=== PATIENT | male | born 1960 | race Native Hawaiian/Other Pacific Islander ===

== ENCOUNTER 2024-07-18 23:21 | Emergency (ER) | payer MEDICARE, SELFPAY ==
[2024-07-18 23:22] VITALS: BMI 25.8
[2024-07-18 23:44] VITALS: BP 156/92; PULSE 74; RESP 19; TEMP 36.6; O2SAT 96
--- NOTE | 2024-07-19 00:02 | PD.EDANIML ---
ED Animal Bite RME/HPI General Chief Complaint: Animal Bite Stated Complaint: DOG BITE Time Seen by Provider: 07/18/24 23:26 Arrival date/time: 07/18/24 23:21 This is a case of 63-year-old male who came in the emergency room due to puncture wound secondary to dog bite 1 hour prior to arrival in the emergency room denies any numbness weakness or tingling sensation patient dog unknown rabies vaccine patient tetanus shot is not up-to-date Limitations: no limitations Related Data Previous Rx's ?Medication ?Instructions ?Recorded amoxicillin 875 mg-potassium 1 tab PO BID 10 days #20 tabs 07/19/24 clavulanate 125 mg tablet mupirocin 2 % topical ointment 1 applic topical BID #22 grams 07/19/24 Allergies Allergy/AdvReac Type Severity Reaction Status Date / Time No Known Allergies Allergy Verified 07/18/24 23:22 Review of Systems Review of Systems Systems Reviewed: All systems reviewed, normal except as documented Constitutional Constitutional: Reports system reviewed and no additional complaints, except as documented Cardiovascular Cardiovascular: Reports system reviewed and no additional complaints, except as documented Respiratory Respiratory: Reports system reviewed and no additional complaints, except as documented Gastrointestinal Gastrointestinal: Reports system reviewed and no additional complaints, except as documented Musculoskeletal Musculoskeletal: Reports system reviewed and no additional complaints, except as documented Integumentary/Breasts Skin/Breast: Reports system reviewed and no additional complaints, except as documented Past Medical History Social History SMOKING STATUS: Never smoker ED Exam General Limitations: Present no limitations General appearance: Present alert and in no apparent distress; Absent appears intoxicated Head Head exam: Present atraumatic and normocephalic Eye Eye exam: Present normal appearance, PERRL and EOMI ENT ENT exam: Present normal exam and normal oropharynx Neck Neck exam: Present normal inspection Chest Chest inspection: Present normal inspection and symmetric chest wall rise Respiratory Respiratory exam: Present normal lung sounds bilaterally Cardiovascular Cardiovascular exam: Present regular rate and normal rhythm Extremities Exam Extremities exam: Present normal inspection, full ROM and normal capillary refill; Absent tenderness, pedal edema, joint swelling or calf tenderness Neurological Exam Neurological exam: Present alert, oriented X3, CN II-XII intact, normal gait, motor sensory deficit and reflexes normal Skin Skin exam: Present other (Patient sustained a small punctured wound on the lateral side dorsal foot clean dry no redness no swelling no abscess ROM intact neurovascular intact) Course Quality Measures none Orders Category Date Time Status Wound Care NOW Care 07/18/24 23:58 Active JEFF/POLY/JAYLEEN (Neosporin) OINT [Neosporin Oint] Med 07/18/24 23:58 Once See Dose Instructions TOP X1 ONE TET,DIP/PERT AC (Adult)-Tdap [Boostrix Adult (Tdap) Med 07/18/24 23:58 Once Vacc] 0.5 ml IMI .ONCE ONE Vital Signs Vital signs: Vital Signs Temperature 98 F 07/18/24 23:44 Pulse Rate 74 07/18/24 23:44 Respiratory Rate 19 07/18/24 23:44 Blood Pressure 156/92 H 07/18/24 23:44 Pulse Oximetry (%) 96 07/18/24 23:44 Oxygen Delivery Method Room Air 07/18/24 23:44 Oxygen saturation 96% WNL Animal Bite MDM Narrative MDM Narrative:: This is a case of 63-year-old male who came in the emergency room due to puncture wound secondary to dog bite 1 hour prior to arrival in the emergency room denies any numbness weakness or tingling sensation patient dog unknown rabies vaccine patient tetanus shot is not up-to-date patient is awake alert oriented not in distress nontoxic looking noted small puncture wound on the lateral side dorsal aspect of the right foot ROM intact neurovascular intact wound was cleaned with normal saline and apply triple antibiotic tetanus shot was given here in the emergency room patient was discharged with Augmentin and mupirocin ointment patient will follow-up with PCP in 2 days for evaluation patient is advised for any worsening symptoms or any signs and symptoms of infection he needs to return to the emergency room immediately or call 911 patient agreed with the treatment plan and discharge patient agrees to the discharge instruction patient discharged with stable condition and steady gait Patient data External records reviewed:: [facility] previous records Clinical information provided by:: patient Social determinants that could affect healthcare access:: none Patient has the following chronic illnesses:: No chronic illness How is presenting disease/condition affected by chronic disease/condition?: no chronic disease Evaluation data The following diagnostics were reviewed and interpreted by me:: other (specify) (None) Lab and/or radiology exams considered but not ordered:: None Interpretation Summary: None Medications / Prescriptions Medications or Prescriptions considered but not ordered:: Given Medication administrations:: Medication Administration History Diphtheria/Tetanus/Acell Pertussis (Diphth,Pertuss(Acell),Tet Vac 0.5 Ml Syr- Adult) 0.5 ml IMi .ONCE ONE Stop: 07/18/24 23:59 Neomycin/Polymyxin/Bacitracin (Jeff/Poly/Jayleen (Neosporin) Oint 15 Gm Tube) 0 gm TOP X1 ONE Stop: 07/18/24 23:59 Given Consultations Consultation(s) initiated? (list below): No Diagnosis Differential diagnosis animal bite: bite by animal Most likely diagnosis given after review of the tests above:: Dog bite Admission Indicated Admission indicated?: not indicated Admission Request Was there a request for admission?: No Disposition Plan Disposition Plan: Discharge Discharge Attestation Discharge Attestation: The patient and all family members were given an opportunity to ask questions and understood the discharge instructions. Discharge instructions specifically effects, indications for sooner follow up or return to the emergency department, and the expected course of current diagnosis. Patient condition: Stable Discharge Plan Plan Patient Disposition: HOME (Self Care) Discharge Disposition comment: Stable Prescriptions/Referrals Prescriptions/Med Rec: New amoxicillin-pot clavulanate 875-125 mg tablet 1 tab PO BID 10 Days Qty: 20 0RF mupirocin 2 % ointment 1 applic topical BID Qty: 22 0RF Problem List Clinical Impression: Dog bite, Puncture wound of foot Patient/Caregiver Discharge Instructions Education Materials: ED Animal Bite (General), ED Dog Bite, ED Puncture Wound (General) Additional Instructions: Follow-up with your primary care physician in 2 days for reevaluation for any worsening symptoms or any emergent concerns such as redness swelling discharge from the wound pain fever chills call 911 or go to the nearest emergency room take your antibiotic and finish the course of antibiotic keep the wound clean and dry Print Language: Eritrean Stand Alone Forms: Mel Award Info., Patient Portal Info Letter PA/CLIENT SUPPORT ADMINISTRATOR Supervising Physician PA/LIZ Supervising Physician: Dr carrasco
--- NOTE | 2024-07-19 00:03 | PD.EDANIML ---
ED Animal Bite RME/HPI General Chief Complaint: Animal Bite Stated Complaint: DOG BITE Time Seen by Provider: 07/18/24 23:26 Arrival date/time: 07/18/24 23:21 RME / HPI RME / HPI narrative: This is a case of 63-year-old male who came into the emergency room due to dog bite and sustained a puncture wound on the right foot Related Data Previous Rx's ?Medication ?Instructions ?Recorded amoxicillin 875 mg-potassium 1 tab PO BID 10 days #20 tabs 07/19/24 clavulanate 125 mg tablet mupirocin 2 % topical ointment 1 applic topical BID #22 grams 07/19/24 Allergies Allergy/AdvReac Type Severity Reaction Status Date / Time No Known Allergies Allergy Verified 07/18/24 23:22 Course Quality Measures none Orders Category Date Time Status Wound Care NOW Care 07/18/24 23:58 Completed JEFF/POLY/JAYLEEN (Neosporin) OINT [Neosporin Oint] Med 07/18/24 23:58 Discontinued See Dose Instructions TOP X1 ONE TET,DIP/PERT AC (Adult)-Tdap [Boostrix Adult (Tdap) Med 07/18/24 23:58 Discontinued Vacc] 0.5 ml IMI .ONCE ONE Vital Signs Vital signs: Vital Signs Temperature 98 F 07/18/24 23:44 Pulse Rate 74 07/18/24 23:44 Respiratory Rate 19 07/18/24 23:44 Blood Pressure 156/92 H 07/18/24 23:44 Pulse Oximetry (%) 96 07/18/24 23:44 Oxygen Delivery Method Room Air 07/18/24 23:44 Animal Bite Patient data External records reviewed:: [facility] [place] Clinical information provided by:: patient Social determinants that could affect healthcare access:: none Patient has the following chronic illnesses:: No chronic illness How is presenting disease/condition affected by chronic disease/condition?: no chronic disease Evaluation data The following diagnostics were reviewed and interpreted by me:: other (specify) (None) Lab and/or radiology exams considered but not ordered:: None Interpretation Summary: None Medications / Prescriptions Medications or Prescriptions considered but not ordered:: Given Medication administrations:: Medication Administration History Discontinued Medications Diphtheria/Tetanus/Acell Pertussis (Diphth,Pertuss(Acell),Tet Vac 0.5 Ml Syr- Adult) 0.5 ml IMi .ONCE ONE Stop: 07/18/24 23:59 Last Admin: 07/19/24 00:19 Dose: 0.5 ml Documented By: GHASSAN Neomycin/Polymyxin/Bacitracin (Jeff/Poly/Jayleen (Neosporin) Oint 15 Gm Tube) 0 gm TOP X1 ONE Stop: 07/18/24 23:59 Last Admin: 07/19/24 00:15 Dose: Not Given Documented By: GHASSAN Non-Admin Reason: Cancelled by Provider Given Consultations Consultation(s) initiated? (list below): No Diagnosis Most likely diagnosis given after review of the tests above:: Punctured wound Admission Indicated Admission indicated?: not indicated Admission Request Was there a request for admission?: No Disposition Plan Disposition Plan: Discharge Discharge Attestation Discharge Attestation: The patient and all family members were given an opportunity to ask questions and understood the discharge instructions. Discharge instructions specifically effects, indications for sooner follow up or return to the emergency department, and the expected course of current diagnosis. Patient condition: Stable Discharge Plan Plan Patient Disposition: HOME (Self Care) Discharge Disposition comment: Stable Prescriptions/Referrals Prescriptions/Med Rec: New amoxicillin-pot clavulanate 875-125 mg tablet 1 tab PO BID 10 Days Qty: 20 0RF mupirocin 2 % ointment 1 applic topical BID Qty: 22 0RF Problem List Clinical Impression: Dog bite, Puncture wound of foot Patient/Caregiver Discharge Instructions Education Materials: ED Animal Bite (General), ED Dog Bite, ED Puncture Wound (General) Additional Instructions: Follow-up with your primary care physician in 2 days for reevaluation for any worsening symptoms or any emergent concerns such as redness swelling discharge from the wound pain fever chills call 911 or go to the nearest emergency room take your antibiotic and finish the course of antibiotic keep the wound clean and dry Print Language: Macedonian Stand Alone Forms: Mel Award Info., Patient Portal Info Letter PA/LAUNDRY WORKER Supervising Physician PA/LIZ Supervising Physician: Dr carrasco
[2024-07-19] MEDS: DIPHTH,PERTUSS(ACELL),TET VAC 0.5 ML SYR- ADULT IMi (00:19)
== END 2024-07-19 00:28 | disposition home or self-care (01) ==
LOC: SERX 07-19 01:07
PROVIDERS: Emergency Provider Emergency Medicine; PCP Family Medicine
DX: S91.331A Puncture wound without foreign body, right foot, initial encounter (principal); W54.0XXA Bitten by dog, initial encounter; Z23 Encounter for immunization
CPT/HCPCS: 90471; 90715; 99282